=== PATIENT | female | born 1970 | race Caucasian/White ===

== ENCOUNTER 2021-10-16 13:47 | Emergency (ER) | payer OTHER, SELFPAY ==
--- NOTE | ~2021-10-16 | CT_ITS ---
EXAMINATION: CT abdomen pelvis w con DATE: 10/16/2021 15:54 INDICATION: Abdominal pain, bloody stools. TECHNIQUE: Computed tomography (CT) of the abdomen and pelvis was performed with 100 CC Omnipaque 350 intravenous contrast. Automated exposure control and iterative reconstruction technique were employe d. Exam dose: 1100.17 mGy-cm total exam DLP. COMPARISON: None. FINDINGS: The lung bases are clear of infiltrate or consolidation. Suggestion of an approximately 3-4 mm groundglass density in the anterolateral left lower lobe on the uppermost slice. Normal heart size. No pericardial or pleural effusion. The liver, gallbladder, bile ducts, pancreas, pancreatic duct, spleen, and adrenal glands and kidneys are unremarkable. No urinary tract calculus or hydroureteronephrosis. The urinary bladder is unremar kable. Status post hysterectomy. Normal caliber of the abdominal aorta. No intraperitoneal or retroperitoneal or pelvic mass lesion or adenopathy or ascites. Normal appendix. There are calcifications of uncertain significance in the rectosigmoid area. There is thickening of t he wall of the splenic flexure, descending and sigmoid colon. IMPRESSION: Thickening of the wall of the sigmoid and descending colon and splenic flexure seminal c onsider infectious or inflammatory colitis. Normal appendix Nonspecific calcifications in the rectosigmoid area Status post hysterectomy Small sliding hiatal hernia Reviewed, dictated and finalized at [facility]. Reviewed, dictated and finalized at [facility]. IMPRESSION: Thickening of the wall of the sigmoid and descending colon and spl enic flexure seminal consider infectious or inflammatory colitis. Normal appendix Nonspecific calcifications in the rectosigmoid area Status post hysterectomy Small sliding hiatal hernia
[2021-10-16 14:02] VITALS: BP 157/100; PULSE 85; RESP 14; O2SAT 100
--- NOTE | 2021-10-16 14:54 | ED.GIBLEED ---
HPI - GI Bleed General Chief complaint: GI Bleed Stated complaint: gi bleed Time Seen by Provider: 10/16/21 14:22 Source: patient and RN notes reviewed Mode of arrival: ambulatory Limitations: no limitations History of Present Illness HPI Narrative: Patient is 51 years old white female came to the emergency room because of diffuse abdominal pain started yesterday, today have frequent bloody bowel movement of fresh bright red blood. Without any abdominal pain. She denies any fever, or chills. Intermittent nausea and vomiting since yesterday. History of colon cancer 2010, status post colon resection 2010, patient did not follow-up with her manager internal 2019 for nonspecific reason Related Data Allergies Allergy/AdvReac Type Severity Reaction Status Date / Time No Known Allergies Allergy Unverified 10/16/21 14:07 Exam Narrative: General appearance: Well-developed, well-nourished Skin: Normal color Head: Normocephalic, nontraumatic Eyes: Clear conjunctiva ENT: Oropharynx normal, ears normal, nose normal Neck: Supple, nontender Chest and respiratory: Airway patent, no respiratory distress, no accessory muscle use Heart: Regular rate/rhythm Abdomen: Soft, nontender, no organomegaly, quiet bowel sounds, rectal exam showed no stool in the rectal pouch, guaiac negative, no blood Vascular: Normal peripheral pulses, normal capillary refill. Musculoskeletal: Normal range of motion, nontender back Neurologic: Alert and oriented ?3, [employer] is normal as tested, no gross motor deficit Course Course Emergency Course: Work-up and physical examination did not show that the patient have GI bleed. CAT scan showed colitis which high likely the underlying cause of patient going to the bathroom frequently. My plan to discharge patient on Levaquin and Flagyl and to follow-up with manager internal next week. Vital Signs Vital signs: Vital Signs Pulse Rate 85 10/16/21 14:02 Respiratory Rate 14 10/16/21 14:02 Blood Pressure 157/100 H 10/16/21 14:02 Pulse Oximetry 100 10/16/21 14:02 Pulse Rate 85 10/16/21 14:02 Respiratory Rate 14 10/16/21 14:02 Blood Pressure 157/100 H 10/16/21 14:02 Pulse Oximetry 100 10/16/21 14:02 MDM - GI Bleed Lab Data Result diagrams: 10/16/21 14:44 10/16/21 14:44 Labs: Lab Results 10/16/21 10/16/21 10/16/21 Range/Units 14:44 14:44 14:44 WBC 11.0 H (4.5-10.0) K/mm3 RBC 4.95 (4.2-5.4) M/mm3 Hgb 15.5 H (12.0-15.0) g/dL Hct 44.7 (37.0-47.0) % MCV 90.3 (80-100) fl MCH 31.3 (26-34) pg MCHC 34.7 (32-36) g/dl RDW 12.7 (11.5-14.5) % Plt Count 251 (150-375) k/mm3 MPV 10.5 H (7.4-10.4) fl Immature Gran % (Auto) 0.3 (0-0.5) % Neut % (Auto) 64.0 (45.5-73.1) % Lymph % (Auto) 25.7 (18.3-44.2) % [place] % (Auto) 6.6 (2.6-8.5) % Eos % (Auto) 3.2 (0-4.4) % Baso % (Auto) 0.2 (0.2-1.2) % Lymph # (Auto) 2.82 (0.9-3.2) K/mm3 [place] # (Auto) 0.7 H (0.1-0.6) K/mm3 Eos # (Auto) 0.4 H (0-0.3) K/mm3 Baso # (Auto) 0.0 (0.0-0.1) K/mm3 Abs Immat Gran (auto) 0.03 (0.00-0.031) K/mm3 Absolute Neuts (auto) 7.0 H (1.3-6.7) K/mm3 Absolute Nucleated RBC 0.0 (0.0-0.012) K/mm3 Nucleated RBC % 0.0 (0.0-0.2) % PT (11.1-14.7) Seconds INR APTT (22.3-36.8) SECONDS Sodium 131 L (137-145) mmol/L Potassium 3.1 L (3.4-5.0) mmol/L Chloride 95 L (98-107) mmol/L Carbon Dioxide 27 (22-30) mmol/L Anion Gap 9 (8-16) mmol/L BUN 12 (7-17) mg/dL Creatinine 0.70 (0.7-1.0) mg/dL Estim Creat Clear Calc 101 ml/min Estimated GFR > 60 (59 - ) Glucose
[2021-10-16 15:03] LABS: Basophils Percent Auto 0.2 % (0.2-1.2); Eosinophils Absolute Auto 0.4 K/mm3 (0-0.3); Eosinophils Percent Auto 3.2 % (0-4.4); Hematocrit 44.7 % (37.0-47.0); Hemoglobin 15.5 g/dL (12.0-15.0); Immature Granulocyte Absolute 0.03 K/mm3 (0.00-0.031); Immature Granulocyte Percent A 0.3 % (0-0.5); Lymphocytes Absolute Auto 2.82 K/mm3 (0.9-3.2); Lymphocytes Percent Auto 25.7 % (18.3-44.2); Mean Corpuscular HGB Conc 34.7 g/dl (32-36); Mean Corpuscular Hemoglobin 31.3 pg (26-34); Mean Corpuscular Volume 90.3 fl (80-100); Mean Platelet Volume 10.5 fl (7.4-10.4); Monocytes Absolute Auto 0.7 K/mm3 (0.1-0.6); Monocytes Percent Auto 6.6 % (2.6-8.5); Platelet Count Result 251 k/mm3 (150-375); Red Blood Count 4.95 M/mm3 (4.2-5.4); Red Cell Distribution Width 12.7 % (11.5-14.5)
[2021-10-16] MEDS: SODIUM CHLORIDE 0.9% IV 1,000 ML 999 ML IV CONT (15:14)
[2021-10-16] MEDS: ONDANSETRON INJ 4 MG/2 ML VIAL IV PUSH (15:15)
[2021-10-16] MEDS: PANTOPRAZOLE SODIUM IV 40 MG VIAL IV PUSH (15:15)
[2021-10-16 15:20] LABS: Alanine Aminotransferase 22 U/L (4-35); Albumin Level 4.8 g/dL (3.5-5.1); Alkaline Phosphatase 80 U/L (38-126); Anion Gap 9 mmol/L (8-16); Aspartate Amino Transferase 28 U/L (14-36); Bilirubin,Total 0.6 mg/dL (0.2-1.3); Blood Urea Nitrogen 12 mg/dL (7-17); Calcium 9.1 mg/dL (8.4-10.2); Carbon Dioxide 27 mmol/L (22-30); Chloride 95 mmol/L (98-107); Estimated CRCL calculation 101 ml/min; Estimated Glomerular Filt Rate > 60; Glucose 94 mg/dL (65-110); Potassium 3.1 mmol/L (3.4-5.0); Sodium 131 mmol/L (137-145)
[2021-10-16 15:42] LABS: Prothrombin Time 12.7 Seconds (11.1-14.7)
[2021-10-16 15:43] LABS: Partial Thromboplastin Time 28.2 SECONDS (22.3-36.8)
[2021-10-16 18:02] VITALS: BP 134/77; PULSE 80; RESP 20; O2SAT 98
[2021-10-16 19:22] VITALS: BP 142/88; PULSE 72; RESP 16; O2SAT 100
== END 2021-10-16 19:23 | disposition home or self-care (01) ==
PROVIDERS: Emergency Provider Emergency Medicine; PCP Internal Medicine
DX: K52.9 Noninfective gastroenteritis and colitis, unspecified (principal); Z85.038 Personal history of other malignant neoplasm of large intestine; Z90.49 Acquired absence of other specified parts of digestive tract; K44.9 Diaphragmatic hernia without obstruction or gangrene
CPT/HCPCS: 36415; 74177; 80053; 85025; 85610; 85730; 86850; 86900; 86901; 96361; 96374; 96375; 99284; C9113; J2405; J7030; Q9967